=== PATIENT | female | born 2000 | race Two or more races ===

== ENCOUNTER → 2024-03-28 | Outpatient (CLI) | payer OTHER ==
[2024-03-28 13:08] LABS: HEMATOCRIT 36.4 % (36.0-47.0); HEMOGLOBIN 12.4 g/dl (12.0-15.5); MEAN CORPUSCULAR HEMOGLOBIN 30.4 pg (27.0-33.0); MEAN CORPUSCULAR HGB CONC 34.1 g/dl (32.0-36.5); MEAN CORPUSCULAR VOLUME 89.2 fl (80.0-96.0); PLATELET COUNT, AUTOMATED 257 10^3/uL (150-450); RED BLOOD COUNT 4.08 10^6/uL (4.00-5.40); WHITE BLOOD COUNT 8.3 10^3/uL (4.0-10.0)
[2024-03-28 13:43] LABS: HIV 1&2 SCREEN NEGATIVE (NEGATIVE)
[2024-03-28 13:51] LABS: HEPATITIS C VIRUS ABY INDEX < 0.02 INDEX (<0.8)
[2024-03-28 14:30] LABS: GC DNA AMPLIFICATION NEGATIVE (NEGATIVE)
== END ==
LOC: M PLALAB 10:58
PROVIDERS: ATTEND Advanced Practice Midwife
DX: Z34.01 Encounter for supervision of normal first pregnancy, first trimester (principal)

== ENCOUNTER → 2024-03-28 | Outpatient (REF) | payer OTHER | LOC: M PLALAB 10:37 | PROVIDERS: ATTEND Advanced Practice Midwife | DX: Z34.01 Encounter for supervision of normal first pregnancy, first trimester (principal) ==

== ENCOUNTER → 2024-05-02 | Outpatient (CLI) | payer OTHER | LOC: M PLALAB 08:36 | PROVIDERS: ATTEND Obstetrics & Gynecology | DX: Z34.90 Encounter for supervision of normal pregnancy, unspecified, unspecified trimester (principal); Z3A.00 Weeks of gestation of pregnancy not specified ==

== ENCOUNTER → 2024-06-02 | Outpatient (CLI) | payer OTHER | LOC: M WHC 08:55 | PROVIDERS: ATTEND Obstetrics & Gynecology | DX: Z34.92 Encounter for supervision of normal pregnancy, unspecified, second trimester (principal) ==

== ENCOUNTER → 2024-07-23 | Outpatient (CLI) | payer OTHER ==
[2024-07-23 16:15] LABS: GLUCOSE CHALLENGE TEST 1 HOUR 169 MG/DL (LESS THAN 140); HEMATOCRIT 37.2 % (36.0-47.0); HEMOGLOBIN 12.2 g/dl (12.0-15.5); MEAN CORPUSCULAR HEMOGLOBIN 31.2 pg (27.0-33.0); MEAN CORPUSCULAR HGB CONC 32.8 g/dl (32.0-36.5); MEAN CORPUSCULAR VOLUME 95.1 fl (80.0-96.0); PLATELET COUNT, AUTOMATED 232 10^3/uL (150-450); RED BLOOD COUNT 3.91 10^6/uL (4.00-5.40); WHITE BLOOD COUNT 7.7 10^3/uL (4.0-10.0)
[2024-07-23 16:34] LABS: GC DNA AMPLIFICATION NEGATIVE (NEGATIVE)
[2024-07-23 16:51] LABS: HIV 1&2 SCREEN NEGATIVE (NEGATIVE)
[2024-07-23 16:58] LABS: HEPATITIS C VIRUS ABY INDEX < 0.02 INDEX (<0.8)
== END ==
LOC: M PLALAB 08:26
PROVIDERS: ATTEND Advanced Practice Midwife
DX: Z34.82 Encounter for supervision of other normal pregnancy, second trimester (principal)

== ENCOUNTER → 2024-07-30 | Outpatient (CLI) | payer OTHER | LOC: M LAB 07:43 | PROVIDERS: ATTEND Advanced Practice Midwife | DX: O99.810 Abnormal glucose complicating pregnancy (principal); Z3A.00 Weeks of gestation of pregnancy not specified ==

== ENCOUNTER → 2024-09-22 | Outpatient (REF) | payer OTHER | LOC: M SFHCWAGY 13:01 | PROVIDERS: ATTEND Nurse Practitioner Family | DX: Z34.03 Encounter for supervision of normal first pregnancy, third trimester (principal); Z3A.36 36 weeks gestation of pregnancy ==

== ENCOUNTER 2024-10-22 06:09 | Inpatient (IN) | payer OTHER ==
[2024-10-22] VITALS (49 sets, daily range): BP systolic 102–187; BP diastolic 55–149
[~2024-10-22] VITALS: Ht 165.1 cm; Wt 70.2 kg
[2024-10-22] MEDS ORDERED: METHYLERGONOVINE MALEATE 0.2MG/ML 1ML VIAL IM PRN (07:05)
[2024-10-22] MEDS ORDERED: TRANEXAMIC ACID INJection 1,000 MG in NS 100 ML IV PRN (07:05)
[2024-10-22] MEDS ORDERED: CARBOPROST TROMETHAMINE 250 MCG/ML AMP IM PRN (07:05)
[2024-10-22] MEDS ORDERED: LIDOCAINE 1% MDV 20ML VIAL INFIL PRN (07:05)
[2024-10-22] MEDS: LACTATED RINGER'S 1000 ML IV STA (07:30)
[2024-10-22] MEDS: LR 1,000 ML IV SCH (07:30)
[2024-10-22] MEDS ORDERED: HOME MED LIST COMPLETE! XX SCH (07:35)
[2024-10-22] MEDS ORDERED: PRENTAB7 PO (07:35)
[2024-10-22 07:39] LABS: HEMATOCRIT 40.4 % (36.0-47.0); HEMOGLOBIN 13.7 g/dl (12.0-15.5); MEAN CORPUSCULAR HEMOGLOBIN 31.1 pg (27.0-33.0); MEAN CORPUSCULAR HGB CONC 33.9 g/dl (32.0-36.5); MEAN CORPUSCULAR VOLUME 91.8 fl (80.0-96.0); PLATELET COUNT, AUTOMATED 212 10^3/uL (150-450); WHITE BLOOD COUNT 11.9 10^3/uL (4.0-10.0)
[2024-10-22 08:02] LABS: URIC ACID 5.4 MG/DL (3.1-7.8)
[2024-10-22 08:04] LABS: LDH LACTATE DEHYDROGENASE 201 U/L (120-246)
[2024-10-22 08:06] LABS: ALT/SGPT 31 U/L (7.0-40); AST/SGOT 24 U/L (<34); BILIRUBIN,TOTAL 0.4 MG/DL (0.3-1.2); CREATININE FOR GFR 0.51 MG/DL (0.55-1.30); GLOMERULAR FILTRATION RATE > 60.0 (>60)
[2024-10-22] MEDS ORDERED: FENTANYL 2MCG/ML ROPIVACAINE 0.2% IN 0.9% NACL 100ML IVBAG As Ordered ONE (08:28)
[2024-10-22] MEDS ORDERED: ONDANSETRON 4MG 2ML VIAL IV PRN (08:30)
[2024-10-22] MEDS ORDERED: LR 500 ML IV PRN (08:30)
[2024-10-22] MEDS ORDERED: NALOXONE INJ 0.4MG/1ML VIAL IV PRN (08:30)
[2024-10-22] MEDS ORDERED: ePHEDrine SULFATE 25 MG/5 ML(5MG/ML) SYRINGE IVP PRN (08:30)
[2024-10-22] MEDS ORDERED: diphenhydrAMINE 50MG/ML VIAL IV PRN (08:30)
[2024-10-22] MEDS ORDERED: EPIDURAL/PCA KEYS XX PRN (08:30)
[2024-10-22 08:45] LABS: HEPATITIS C VIRUS ABY INDEX < 0.02 INDEX (<0.8)
[2024-10-22] MEDS: FENTANYL/ROPIVACAINE/NACL BAG 100 ML EPIDURAL SCH (09:03)
[2024-10-22 17:54] LABS: CORD GAS ABE V -8.3; CORD GAS HCO3 V 19.1 MMOL/L; CORD GAS O2 SAT V 71.1 %; CORD GAS PCO2 V 46.1 mmHg; CORD GAS PH V 7.236 UNITS; CORD GAS PO2 V 33.1 mmHg; CORD GAS SBC V 17.3 MMOL/L; CORD GAS TCO2 V 20.6 MMOL/L
[2024-10-22 17:55] LABS: CORD GAS ABE A -10.6; CORD GAS HCO3 A 20.1 MMOL/L; CORD GAS O2 SAT A 80.1 %; CORD GAS PCO2 A 63.6 mmHg; CORD GAS PH A 7.117 UNITS
[2024-10-22] MEDS: OXYTOCIN DRIP 30 UNITS in IV 1 EA IV PRN (17:55)
[2024-10-22 17:56] LABS: CORD GAS PO2 A QNS mmHg
[2024-10-22] MEDS ORDERED: IBUPROFEN 600MG TAB PO PRN (18:50)
[2024-10-22] MEDS ORDERED: METHYLERGONOVINE MALEATE 0.2 MG TAB PO PRN (18:50)
[2024-10-22] MEDS ORDERED: RHOGAM 300MCG (1500IU) INJ IM SCH (18:50)
[2024-10-22] MEDS ORDERED: DIBUCAINE 1% OINTMENT 30GM TOP PRN (18:50)
[2024-10-23] MEDS: IBUPROFEN 800 MG TAB PO PRN (01:29)
[2024-10-23] MEDS: ACETAMINOPHEN 500 MG TAB PO PRN (03:53)
[2024-10-23 05:45] VITALS: BP 112/69; O2SAT 98
[2024-10-23] MEDS: PRENATAL VITAMINS CHEWABLE TABLET PO SCH (08:30)
[2024-10-23] MEDS: DOCUSATE SODIUM 100MG CAPSULE PO PRN (08:30)
[2024-10-23 18:00] VITALS: BP 123/64; O2SAT 99
[2024-10-24 05:53] VITALS: BP 111/66; O2SAT 99
[2024-10-24] MEDS: MEASLES,MUMPS,RUBELLA VACCINE INJ (MMR-II) SC.IMMUN ONE (09:00)
[2024-10-24] MEDS ORDERED: ACET-683 PO (09:41)
[2024-10-24] MEDS ORDERED: IBUP80TA PO (09:41)
[2024-10-24] MEDS: ACETAMINOPHEN 325 MG TAB PO PRN (14:40)
== END 2024-10-24 15:00 | disposition home or self-care (01) | DRG 560 ==
LOC: M LDO 06:09 → M LDI 06:53 → M OBS 21:20
PROVIDERS: ADMIT Obstetrics & Gynecology; ATTEND Advanced Practice Midwife
PROC: 10E0XZZ Delivery of Products of Conception, External Approach (ICD-10-PCS; principal; 2024-10-22)
PROC: 0KQM0ZZ Repair Perineum Muscle, Open Approach (ICD-10-PCS; 2024-10-22)
PROC: 0HQ9XZZ Repair Perineum Skin, External Approach (ICD-10-PCS; 2024-10-22)
DX: O70.1 Second degree perineal laceration during delivery (principal); Z37.0 Single live birth; Z3A.40 40 weeks gestation of pregnancy; O77.0 Labor and delivery complicated by meconium in amniotic fluid; O70.0 First degree perineal laceration during delivery